=== PATIENT | female | born 1970 | race African-American/Black ===

== ENCOUNTER 2016-09-02 10:36 | Emergency (ER) | payer MEDICAID ==
[~2016-09-02] VITALS: Ht 162.6 cm; Wt 96.0 kg
[~2016-09-02 10:36] MED LIST: GABA-531 PO; HYDR-519 PO; LEVO750T21 PO; hctz PO; lisinopril PO
[2016-09-02 11:52] VITALS: BP 146/83
[2016-09-02] MEDS ORDERED: IBUPROFEN 800MG TABLET PO ONE (12:00)
[2016-09-02] MEDS ORDERED: ACETAMINOPHEN 325MG TABLET PO ONE (12:00)
== END 2016-09-02 12:10 | disposition home or self-care (01) ==
LOC: ER 12:06
DX: G89.29 Other chronic pain (principal); M79.1 Myalgia; F11.20 Opioid dependence, uncomplicated; I10 Essential (primary) hypertension; F17.200 Nicotine dependence, unspecified, uncomplicated; Z76.5 Malingerer [conscious simulation]; Z88.6 Allergy status to analgesic agent; Z88.8 Allergy status to other drugs, medicaments and biological substances
CPT/HCPCS: 99283; Z7610

== ENCOUNTER 2016-09-19 09:26 | Emergency (ER) | payer MEDICAID ==
[~2016-09-19] VITALS: Ht 165.1 cm; Wt 95.0 kg
[2016-09-19] MEDS ORDERED: KETOROLAC 30MG/ML VIAL IV STA (09:58)
[2016-09-19] MEDS ORDERED: MORPHINE SULFATE 4 MG/ML CPJ (NOT FOR IM USE) IV STA (09:58)
[2016-09-19] MEDS ORDERED: ONDANSETRON HCL 4MG/2ML VIAL IV STA (09:58)
[2016-09-19 10:36] VITALS: BP 145/73
[2016-09-19 10:48] LABS: BASOPHILS % 0.7 % (0.0-2.0); EOSINOPHILS % 1.7 % (0.0-5.0); HEMATOCRIT. 38.4 % (36.0-48.0); HEMOGLOBIN. 12.8 g/dL (12.0-16.0); MEAN CORPUSCULAR HEMOGLOBIN 29.1 pg (28.0-32.0); MEAN CORPUSCULAR VOLUME 87.4 fL (81.0-99.0); MEAN PLATELET VOLUME 7.4 fl (7.4-10.4); MONOCYTES % 7.6 % (2.0-8.0); PLATELET 284 x1000/uL (130-400)
[2016-09-19] MEDS ORDERED: SODIUM CHLORIDE 0.9% 1,000 ML IV ONE ×2 (10:50→11:39)
[2016-09-19 10:52] LABS: PARTIAL THROMBOPLASTIN TIME 30.1 sec (24.0-34.0); PROTHROMBIN TIME 10.2 sec
[2016-09-19 10:55] LABS: HCG SCREEN NEGATIVE
[2016-09-19 10:58] LABS: CARBON DIOXIDE 27 mEq/L (21-32); CHLORIDE 104 mEq/L (98-107)
[2016-09-19] MEDS ORDERED: CEFTRIAXONE 1 G PREMIX 50 ML IV ONE (11:00)
[2016-09-19] MEDS ORDERED: POTASSIUM CHLORIDE 20MEQ TABLET SR PO ONE (11:45)
[2016-09-19 12:05] LABS: GLUCOSE URINE NEGATIVE (NEGATIVE); KETONES URINE TRACE (NEGATIVE); LEUKOCYTE ESTERASE URINE 3+ (NEGATIVE); NITRITE URINE NEGATIVE (NEGATIVE); OCCULT BLOOD URINE 2+ (NEGATIVE); PROTEIN URINE 2+ (NEGATIVE); SPECIFIC GRAVITY URINE 1.038 (1.005-1.030)
[2016-09-19 12:07] LABS: CLARITY URINE CLOUDY (CLEAR)
[2016-09-19 12:31] LABS: COLOR URINE DARK YELLOW (YELLOW)
== END 2016-09-19 13:44 | disposition home or self-care (01) ==
LOC: ER 10:55
DX: N10 Acute pyelonephritis (principal); E87.6 Hypokalemia; I10 Essential (primary) hypertension; Z98.890 Other specified postprocedural states; Z88.6 Allergy status to analgesic agent
CPT/HCPCS: 36415; 71010; 74176; 80053; 81001; 81025; 84703; 85025; 85610; 85730; 87040; 87077; 87086; 87186; 96361; 96365; 96375; 99285; J0696; J1885; J2270; J2405; J7030; Z7610

== ENCOUNTER 2016-12-05 11:34 | Emergency (ER) | payer MEDICAID ==
[~2016-12-05] VITALS: Ht 165.1 cm; Wt 100.0 kg
[2016-12-05 14:08] VITALS: BP 159/83
== END 2016-12-05 15:20 | disposition left against medical advice (07) ==
LOC: ER 12:02
DX: Z53.21 Procedure and treatment not carried out due to patient leaving prior to being seen by health care provider (principal)
CPT/HCPCS: 81025

== ENCOUNTER 2016-12-24 11:25 | Emergency (ER) | payer MEDICAID ==
[~2016-12-24] VITALS: Ht 162.6 cm; Wt 95.0 kg
[2016-12-24] MEDS ORDERED: IBUPROFEN 600MG TABLET PO STA (13:10)
[2016-12-24 13:40] LABS: BASOPHILS % 1.1 % (0.0-2.0); EOSINOPHILS % 3.8 % (0.0-5.0); HEMATOCRIT. 38.2 % (36.0-48.0); HEMOGLOBIN. 12.8 g/dL (12.0-16.0); LYMPHOCYTES % 16.1 % (20.0-50.0); MEAN CORPUSCULAR VOLUME 89.3 fL (81.0-99.0); MEAN PLATELET VOLUME 8.1 fl (7.4-10.4); MONOCYTES % 6.6 % (2.0-8.0); NEUTROPHILS % 72.4 % (40.0-76.0); PLATELET 255 x1000/uL (130-400); RED BLOOD CELL COUNT 4.28 mill/uL (4.2-5.4); RED CELL DISTRIBUTION WIDTH 15.6 % (11.6-14.6)
[2016-12-24 13:49] LABS: CLARITY URINE CLEAR (CLEAR); COLOR URINE YELLOW (YELLOW); GLUCOSE URINE NEGATIVE (NEGATIVE); KETONES URINE NEGATIVE (NEGATIVE); LEUKOCYTE ESTERASE URINE 1+ (NEGATIVE); NITRITE URINE NEGATIVE (NEGATIVE); OCCULT BLOOD URINE NEGATIVE (NEGATIVE); PROTEIN URINE NEGATIVE (NEGATIVE); SPECIFIC GRAVITY URINE 1.023 (1.005-1.030); UROBILINOGEN URINE 0.2 E.U./dL (0.2-1.0)
[2016-12-24 13:57] LABS: CARBON DIOXIDE 26 mEq/L (21-32); CHLORIDE 107 mEq/L (98-107)
[2016-12-24] MEDS ORDERED: MORPHINE SULFATE 4 MG/ML CPJ (NOT FOR IM USE) IV ONE (14:30)
[2016-12-24 17:37] VITALS: BP 145/80
== END 2016-12-24 17:39 | disposition home or self-care (01) ==
LOC: ER 11:49
DX: N30.90 Cystitis, unspecified without hematuria (principal); F17.200 Nicotine dependence, unspecified, uncomplicated; I10 Essential (primary) hypertension; Z98.890 Other specified postprocedural states; Z88.6 Allergy status to analgesic agent; Z88.1 Allergy status to other antibiotic agents; Z88.8 Allergy status to other drugs, medicaments and biological substances
CPT/HCPCS: 36415; 76770; 80053; 81001; 81025; 85025; 96374; 99285; J2270; Z7610

== ENCOUNTER 2017-02-12 07:36 | Emergency (ER) | payer MEDICAID ==
[~2017-02-12] VITALS: Ht 162.6 cm; Wt 100.0 kg
[2017-02-12] MEDS ORDERED: IBUPROFEN 600MG TABLET PO ONE (08:45)
[2017-02-12] MEDS ORDERED: LIDOCAINE HCL 1% 20ML VIAL (Pyxis) INJ MC ONE (08:45)
[2017-02-12 09:20] VITALS: BP 150/89
[2017-02-12 09:23] LABS: BASOPHILS % 0.9 % (0.0-2.0); EOSINOPHILS % 1.9 % (0.0-5.0); HEMATOCRIT. 40.1 % (36.0-48.0); HEMOGLOBIN. 13.3 g/dL (12.0-16.0); LYMPHOCYTES % 24.6 % (20.0-50.0); MEAN CORPUSCULAR HEMOGLOBIN 29.7 pg (28.0-32.0); MEAN CORPUSCULAR VOLUME 89.3 fL (81.0-99.0); MEAN PLATELET VOLUME 7.4 fl (7.4-10.4); MONOCYTES % 5.7 % (2.0-8.0); NEUTROPHILS % 66.9 % (40.0-76.0); PLATELET 297 x1000/uL (130-400); RED BLOOD CELL COUNT 4.49 mill/uL (4.2-5.4); RED CELL DISTRIBUTION WIDTH 17.7 % (11.6-14.6)
[2017-02-12 09:35] LABS: CARBON DIOXIDE 25 mEq/L (21-32); CHLORIDE 105 mEq/L (98-107)
[2017-02-12 09:42] LABS: CLARITY URINE TURBID (CLEAR); COLOR URINE YELLOW (YELLOW); KETONES URINE NEGATIVE (NEGATIVE); LEUKOCYTE ESTERASE URINE TRACE (NEGATIVE); NITRITE URINE NEGATIVE (NEGATIVE); OCCULT BLOOD URINE NEGATIVE (NEGATIVE); PH URINE 5.5 (4.5-8.0); PROTEIN URINE TRACE (NEGATIVE); SPECIFIC GRAVITY URINE 1.013 (1.005-1.030); UROBILINOGEN URINE 0.2 E.U./dL (0.2-1.0)
== END 2017-02-12 11:38 | disposition home or self-care (01) ==
LOC: ER 07:36
DX: L03.311 Cellulitis of abdominal wall (principal); R00.2 Palpitations; I10 Essential (primary) hypertension; Z88.6 Allergy status to analgesic agent; Z88.1 Allergy status to other antibiotic agents; Z88.8 Allergy status to other drugs, medicaments and biological substances
CPT/HCPCS: 36415; 80053; 81001; 81025; 85025; 93005; 99285; J3490; Z7610

== ENCOUNTER 2019-03-07 05:26 | Emergency (ER) | payer MEDICAID ==
[~2019-03-07] VITALS: Ht 167.6 cm; Wt 113.0 kg
[2019-03-07 06:32] LABS: BASOPHILS % 0.3 % (0.0-2.0); EOSINOPHILS % 1.5 % (0.0-5.0); HEMATOCRIT. 39.4 % (36.0-48.0); HEMOGLOBIN. 13.4 g/dL (12.0-16.0); LYMPHOCYTES % 36.8 % (20.0-50.0); MEAN CORPUSCULAR HEMOGLOBIN 30.9 pg (28.0-32.0); MEAN CORPUSCULAR VOLUME 90.6 fL (81.0-99.0); MEAN PLATELET VOLUME 7.9 fl (7.4-10.4); MONOCYTES % 5.9 % (2.0-8.0); NEUTROPHILS % 55.5 % (40.0-76.0); PLATELET 326 x1000/uL (130-400); RED BLOOD CELL COUNT 4.35 mill/uL (4.2-5.4)
[2019-03-07 07:35] LABS: CHLORIDE 106 mEq/L (98-107)
[2019-03-07] MEDS ORDERED: MORPHINE SULFATE 4 MG/ML CPJ (NOT FOR IM USE) IV STA (08:37)
[2019-03-07 09:15] VITALS: BP 141/84
== END 2019-03-07 11:13 | disposition home or self-care (01) ==
LOC: ER 05:26
DX: R07.9 Chest pain, unspecified (principal); M54.5 Low back pain; B37.2 Candidiasis of skin and nail; I10 Essential (primary) hypertension; Z88.3 Allergy status to other anti-infective agents; Z88.6 Allergy status to analgesic agent; Z88.8 Allergy status to other drugs, medicaments and biological substances
CPT/HCPCS: 36415; 71045; 80053; 81025; 83880; 84484; 85025; 93005; 96374; 99284; J2270; Z7610

== ENCOUNTER 2024-11-10 18:50 | Emergency (ER) | payer MEDICAID ==
[~2024-11-10] VITALS: Ht 162.6 cm; Wt 82.0 kg
[~2024-11-10 18:50] MED LIST changes: +GABA-1180 PO; -GABA-531 PO
[2024-11-10 18:57] VITALS: O2SAT 99
[2024-11-10 20:07] LABS: BASOPHILS % 1.1 % (0.0-2.0); EOSINOPHILS % 0.6 % (0.0-5.0); HEMATOCRIT. 36.7 % (36.0-48.0); HEMOGLOBIN. 11.9 g/dL (12.0-16.0); LYMPHOCYTES % 25.5 % (20.0-50.0); MEAN PLATELET VOLUME 7.0 fl (7.4-10.4); MONOCYTES % 9.0 % (2.0-8.0); NEUTROPHILS % 63.8 % (40.0-76.0); PLATELET 357 x1000/uL (130-400); RED BLOOD CELL COUNT 4.21 mill/uL (4.2-5.4); RED CELL DISTRIBUTION WIDTH 17.3 % (11.6-14.6)
[2024-11-10 20:22] LABS: INR 1.0
[2024-11-10 20:23] LABS: HCG SCREEN NEGATIVE
[2024-11-10 20:24] LABS: CREATININE 0.8 mg/dL (0.6-1.0); TROPONIN I HIGH SENSITIVITY 12 ng/L (3.0-34); UREA NITROGEN BLOOD 8 mg/dL (9-23)
[2024-11-10] MEDS: POTASSIUM CHLORIDE 20MEQ/PACKET PO ONE ×2 (21:11→23:53)
[2024-11-10] MEDS ORDERED: POTASSIUM CHLORIDE 30 MEQ in DEXT 5%/0.9% NACL 985 ML IV SCH (21:30)
[2024-11-10 22:09] VITALS: TEMP 36.9
[2024-11-10] MEDS: DEXTROSE 50% WATER 50ML SYRINGE IV PRN (23:21)
[2024-11-10] MEDS: KCL 10MEQ/50ML X 3 FOR TOTAL KCL 30MEQ/150ML IV SCH (23:21)
[2024-11-10] MEDS: MORPHINE SULFATE 4 MG/ML INJ (FOR IV/IM USE) IV ONE (23:21)
[2024-11-11 01:40] VITALS: BP 176/88; PULSE 73; RESP 16; O2SAT 97
== END 2024-11-11 02:12 | disposition short-term general hospital (02) ==
LOC: ER 18:50 → CMPBEDREQ 11-11 08:30
DX: R07.89 Other chest pain (principal); I10 Essential (primary) hypertension; E87.6 Hypokalemia; E11.649 Type 2 diabetes mellitus with hypoglycemia without coma; E78.00 Pure hypercholesterolemia, unspecified; N64.4 Mastodynia; Z79.84 Long term (current) use of oral hypoglycemic drugs; Z79.899 Other long term (current) drug therapy; Z86.73 Personal history of transient ischemic attack (TIA), and cerebral infarction without residual deficits; Z87.59 Personal history of other complications of pregnancy, childbirth and the puerperium; Z88.1 Allergy status to other antibiotic agents; Z88.8 Allergy status to other drugs, medicaments and biological substances
CPT/HCPCS: 80048; 82962; 84703; 83880; 85025; 85610; 85730; 84484; 36415; 71045; 93005; 96374; 96375; 99291; J3480; J2270; Z7610 ×2; A4606